=== PATIENT | male | born 1945 | race Caucasian/White ===

== ENCOUNTER 2020-02-26 10:06 | Emergency (ER) | payer BC, MEDICARE ==
[2020-02-26 10:27] VITALS: BP 158/79; PULSE 77
--- NOTE | 2020-02-29 14:32 | EDM.PDOC ---
ED HPI GENERAL MEDICAL PROBLEM - General Chief Complaint: Genitourinary Problem Stated Complaint: KIDNEY STONE Time Seen by Provider: 02/26/20 10:45 Source of Information: Reports: Patient, Family, RN, RN Notes Reviewed History Limitations: Reports: No Limitations - History of Present Illness INITIAL COMMENTS - FREE TEXT/NARRATIVE: Patient presents to ER with complaint of urinary retention. Patient states approximately 10 years ago he had his penis cut off due to blood clots in the penis. 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 A penile pump was implanted, and a penis was reconstructed. Patient states the penile pump has been inflated for many years, and he never deflates it. Patient states he is unsure of how to deflate it. Patient states he has not urinated since last evening. States he urinates normally, does not need to cath himself. Patient complains of severe lower abdominal/pelvic pain from being unable to urinate. Patient denies any further problems at this time. Onset: Today, Gradual Pelvic Pain Score (Numeric/FACES): 8 - Related Data Allergies Allergy/AdvReac Type Severity Reaction Status Date / Time Sulfa (Sulfonamide Allergy Anaphylactic Verified 02/26/20 10:53 Antibiotics) Shock Home Meds: Home Meds Albuterol [Proventil HFA] 1 inh INH Q4H PRN 04/21/16 [History] Calcium Carbonate/Vitamin D3 [Os-Serge 500+D] 1 tab PO DAILY 04/21/16 [History] DULoxetine [Cymbalta] 1 cap PO DAILY 04/21/16 [History] Docusate Sodium [Colace] 1 cap PO DAILY 04/21/16 [History] Fondaparinux [Arixtra] 1 injection SQ DAILY 04/21/16 [History] Furosemide [Lasix] 1 tab PO DAILY 04/21/16 [History] Gabapentin [Neurontin] 1 tab PO BID 04/21/16 [History] Lisinopril 1 tab PO DAILY 04/21/16 [History] Multivitamin [Multi-Vitamin Daily] 1 tab PO DAILY 04/21/16 [History] [place]-3S/DHA/Epa/Fish Oil [Fish Oil [place]-3 Softgel] 1 cap PO DAILY 04/21/16 [History] Polyethylene Glycol 3350 [MiraLAX] 1 dose PO DAILY PRN 04/21/16 [History] carvediloL [Carvedilol] 1 tab PO DAILY 04/21/16 [History] oxyCODONE ER [OxyCONTIN] 40 mg PO Q12HR 04/21/16 [History] oxyCODONE HCl [Roxicodone] 1 tab PO Q4H PRN 04/21/16 [History] Past Medical History HEENT History: Reports: Impaired Vision Other HEENT History: wears glasses Cardiovascular History: Reports: Bypass, CAD, Prior Cardiac Arrest Respiratory History: Reports: PE Other Respiratory History: syas no COPD or asthma, but has an inhaler at home Gastrointestinal History: Reports: Chronic Constipation Genitourinary History: Reports: Other (See Below) Other Genitourinary History: penis cut off in 2009 due to clots Musculoskeletal History: Reports: None Neurological History: Reports: None Psychiatric History: Reports: Anxiety, Depression Endocrine/Metabolic History: Reports: Obesity/BMI 30+ Hematologic History: Reports: None Immunologic History: Reports: None Oncologic (Cancer) History: Reports: Prostate, Other (See Below) Other Oncologic History: prostate removed in 1999 Dermatologic History: Reports: None - Infectious Disease History Infectious Disease History: Reports: Chicken Pox, Measles - Past Surgical History Cardiovascular Surgical History: Reports: Coronary Artery Bypass Male Surgical History: Reports: Other (See Below) Other Male Surgeries/Procedures: penile pump Social & Family History - Tobacco Use Smoking Status *Q: Never Smoker Second Hand Smoke Exposure: No - Caffeine Use Caffeine Use: Reports: Coffee, Soda - Recreational Drug Use Recreational Drug Use: No ED ROS GENERAL - Review of Systems Review Of Systems: Comprehensive ROS is negative, except as noted in HPI. ED EXAM, RENAL/ - Physical Exam Exam: See Below Exam Limited By: No Limitations General Appearance: Alert, WD/WN, Moderate Distress Eye Exam: Bilateral Eye: EOMI, Normal Inspection Ears: Normal External Exam, Hearing Grossly Normal Nose: Normal Inspection Throat/Mouth: Normal Inspection, Normal Voice, No Airway Compromise Head: Atraumatic, Normocephalic Neck: Normal Inspection, Supple, Non-Tender, Full Range of Motion Respiratory/Chest: No Respiratory Distress, No Accessory Muscle Use, Chest Non- Tender, Decreased Breath Sounds Cardiovascular: Normal Peripheral Pulses, Regular Rate, Rhythm, No Edema, No Gallop, No JVD, No Murmur, No Rub GI/Abdominal: Normal Bowel Sounds, Soft, No Organomegaly, Tender (RLQ, LLQ, Pelvic) (Male) Exam: Other ("stub" penis reconstructed, penis removed >10 years ago) Rectal (Males) Exam: Deferred Back Exam: Normal Inspection, Full Range of Motion, NT Extremities: Normal Inspection, Normal Range of Motion, Non-Tender, Normal Capillary Refill, No Pedal Edema Neurological: Alert, Oriented, CN II-XII Intact, Normal Cognition, Normal Gait, Normal Reflexes, No Motor/Sensory Deficits Psychiatric: Normal Affect, Normal Mood Skin Exam: Warm, Dry, Intact, Normal Color, No Rash Lymphatic: No Adenopathy Course - Vital Signs Last Recorded V/S: Last Vital Signs Temp 96.6 F L 02/26/20 10:23 Pulse 77 02/26/20 10:23 Resp 18 02/26/20 10:23 BP 158/79 H 02/26/20 10:23 Pulse Ox 98 02/26/20 10:23 - Re-Assessments/Exams Free Text/Narrative Re-Assessment/Exam: Catheterization attempted several times by nursing staff, myself the provider, as well as Dr. Rodriguez. Different sizes as well as a chordee catheter used. Unable to advance the catheter past the penile implant device. Discussed patient case with Dr. Read, urologist at [facility], who states the patient can be transferred to [facility] per private vehicle to see him in the emergency department. Departure - Departure Time of Disposition: 12:06 Disposition: DC/Tfer to Acute Hospital 02 Condition: Fair Clinical Impression: Retention of urine - Discharge Information *PRESCRIPTION DRUG MONITORING PROGRAM REVIEWED*: No *COPY OF PRESCRIPTION DRUG MONITORING REPORT IN PATIENT BERTO: No Forms: ED Department Discharge, Interfacility Transfer [facility] Sepsis Event Note (ED) - Evaluation Sepsis Screening Result: No Definite Risk
== END 2020-02-26 11:56 ==
LOC: DL.ED 10:06
DX: R33.9 Retention of urine, unspecified (principal); I25.10 Atherosclerotic heart disease of native coronary artery without angina pectoris; E66.9 Obesity, unspecified; F32.9 Major depressive disorder, single episode, unspecified; F41.9 Anxiety disorder, unspecified; Z88.2 Allergy status to sulfonamides; Z79.899 Other long term (current) drug therapy; Z68.32 Body mass index [BMI] 32.0-32.9, adult; Z95.1 Presence of aortocoronary bypass graft
CPT/HCPCS: 51702; 99284; 99284-25

== ENCOUNTER 2022-07-05 15:17 | Inpatient (IN) | payer MEDICARE, BC ==
[2022-07-05] MEDS: Sodium Chloride 0.9% 10 ML Syringe FLUSH PRN (15:37)
[2022-07-05] MEDS ORDERED: Albuterol/Ipratropium 3.0-0.5 MG/3 ML Neb Soln NEB ONE ×2 (15:39→17:06)
[2022-07-05] MEDS ORDERED: methylPREDNISolone Sodium Succinate 125 MG/2 ML SDV IVPUSH ONE (15:58)
[2022-07-05 16:04] LABS: PTT,PARTIAL THROMBOPLSTIN TIME 25.4 SEC (22.0-34.0)
[2022-07-05 16:08] LABS: ANION GAP 8.1 mEq/L (7-13); CHLORIDE,CL 94 mmol/L (98-107); SODIUM,NA 131 mmol/L (136-145)
[2022-07-05 16:14] LABS: ESTIMATED GFR 47 mL/min (>=60)
[2022-07-05] MEDS ORDERED: Sodium Chloride 0.9% 1,000 ML IV ONE (16:18)
[2022-07-05 16:24] LABS: CORONAVIRUS COVID-19 NAA NEGATIVE (NEGATIVE); RESPIRATORY SYNCYTIAL VIR NAA NEGATIVE (NEGATIVE)
[2022-07-05] MEDS ORDERED: Albuterol 6.7 GM Inhaler INH ONE (16:38)
[2022-07-05 17:20] LABS: O2 DELIVERY DEVICE ROOM AIR; PCO2 ARTERIAL 52 mmHg (35-45); PO2 ARTERIAL 61 mmHg (70-100)
[2022-07-05 17:21] LABS: ALLEN TEST PERFORMED; BASE EXCESS ARTERIAL 2 mmol/L ((-2)-(+3)); BICARBONATE,ARTERIAL 27.7 mmol/L (22-26); O2 SATURATION ARTERIAL 88 % (95-100)
[2022-07-05] MEDS ORDERED: Ondansetron 4 MG/2 ML SDV IVPUSH PRN (20:00)
[2022-07-05] MEDS ORDERED: Albuterol/Ipratropium 3.0-0.5 MG/3 ML Neb Soln NEB PRN (20:00)
[2022-07-05] MEDS ORDERED: Acetaminophen 325 MG Tab PO PRN (20:00)
[2022-07-05] MEDS ORDERED: Magnesium Hydroxide 400 MG/5 ML Susp 30 ML Cup PO PRN (20:00)
[2022-07-05] MEDS ORDERED: HYDROmorphone 0.5 MG/0.5 ML Syringe IVPUSH PRN (20:00)
[2022-07-05] MEDS ORDERED: Polyethylene Glycol 3350 Powder 17 GM Packet PO PRN (20:00)
[2022-07-05] MEDS ORDERED: Oseltamivir 75 MG Cap PO ONE (20:10)
[2022-07-05] MEDS ORDERED: Glucagon,Human Recombinant 1 MG Vial IM PRN (20:11)
[2022-07-05] MEDS ORDERED: 50% Dextrose in Water 50 ML Syringe IVPUSH PRN (20:11)
[2022-07-05] MEDS ORDERED: Sodium Chloride 0.9% 250 ML IV SCH (20:15)
[2022-07-05] MEDS ORDERED: Midodrine 2.5 MG Tab PO PRN (20:16)
[2022-07-05] MEDS ORDERED: oxyCODONE ER 20 MG TAB.ER PO ONE (21:34)
[2022-07-05] MEDS ORDERED: Gabapentin 300 MG Cap PO ONE (21:41)
[2022-07-05] MEDS: Apixaban 5 MG Tab PO SCH (22:35)
[2022-07-06] MEDS: Albuterol/Ipratropium 3.0-0.5 MG/3 ML Neb Soln NEB SCH ×2 (08:00→19:15)
[2022-07-06] MEDS: methylPREDNISolone Sodium Succinate 40 MG/1 ML SDV IVPUSH SCH ×2 (08:03→20:26)
[2022-07-06] MEDS: Insulin Lispro 100 Units/ML 3 ML Vial SUBCUT SCH ×3 (08:07→17:24)
[2022-07-06] MEDS: Oseltamivir 30 MG Cap PO SCH ×2 (08:09→20:26)
[2022-07-06] MEDS: Apixaban 5 MG Tab PO SCH ×2 (08:09→20:26)
[2022-07-06] MEDS: Sodium Chloride 0.9% 10 ML Syringe FLUSH PRN ×2 (08:15→20:26)
[2022-07-06] MEDS ORDERED: Albuterol 6.7 GM Inhaler INH PRN (08:34)
[2022-07-06] MEDS ORDERED: [UNRECOGNIZED DRUG - OTHER] PO SCH (09:00)
[2022-07-06] MEDS ORDERED: FISH OIL PO SCH (09:00)
[2022-07-06] MEDS ORDERED: EPA PO SCH (09:00)
[2022-07-06] MEDS ORDERED: Apixaban 5 MG Tab PO SCH (09:00)
[2022-07-06] MEDS ORDERED: DHA PO SCH (09:00)
[2022-07-06] MEDS ORDERED: OMEGA PO SCH (09:00)
[2022-07-06] MEDS ORDERED: valACYclovir 1,000 MG Tab PO SCH (09:00)
[2022-07-06] MEDS ORDERED: oxyCODONE 5 MG Tab PO PRN (10:23)
[2022-07-06] MEDS: DULoxetine 30 MG Cap PO SCH (11:00)
[2022-07-06] MEDS: Docusate Sodium 100 MG Cap PO SCH (11:01)
[2022-07-06] MEDS: Calcium Carbonate/Vitamin D3 1250 MG-5 MCG Tab PO SCH (11:01)
[2022-07-06] MEDS: Lisinopril 10 MG Tab PO SCH (11:01)
[2022-07-06] MEDS: Rosuvastatin 10 MG Tab PO SCH (11:02)
[2022-07-06] MEDS: Gabapentin 300 MG Cap PO SCH ×2 (11:02→20:26)
[2022-07-06] MEDS: Multivitamins with Iron/Calcium/Folic Acid/Minerals Tab PO SCH (11:02)
[2022-07-06] MEDS: Spironolactone 25 MG Tab PO SCH (11:04)
[2022-07-06] MEDS: oxyCODONE ER 20 MG TAB.ER PO SCH ×3 (11:05→20:25)
[2022-07-06] MEDS: Lidocaine 5% 700 MG Patch TOP SCH (11:07)
[2022-07-06] MEDS: Furosemide 20 MG Tab PO SCH (11:15)
[2022-07-06] MEDS: valACYclovir 1,000 MG Tab PO SCH (11:26)
[2022-07-06] MEDS: Carvedilol 6.25 MG Tab PO SCH (13:05)
[2022-07-07] MEDS: Albuterol/Ipratropium 3.0-0.5 MG/3 ML Neb Soln NEB SCH ×2 (06:15→18:19)
[2022-07-07 06:43] LABS: ANION GAP 8.6 mEq/L (7-13)
[2022-07-07] MEDS: Insulin Lispro 100 Units/ML 3 ML Vial SUBCUT SCH ×3 (08:19→17:13)
[2022-07-07] MEDS: Apixaban 5 MG Tab PO SCH ×2 (08:20→21:44)
[2022-07-07] MEDS: Carvedilol 6.25 MG Tab PO SCH (08:20)
[2022-07-07] MEDS: Oseltamivir 30 MG Cap PO SCH ×2 (08:20→21:44)
[2022-07-07] MEDS: Gabapentin 300 MG Cap PO SCH ×2 (08:20→21:44)
[2022-07-07] MEDS: oxyCODONE ER 20 MG TAB.ER PO SCH ×3 (08:20→21:44)
[2022-07-07] MEDS: Multivitamins with Iron/Calcium/Folic Acid/Minerals Tab PO SCH (08:22)
[2022-07-07] MEDS: DULoxetine 30 MG Cap PO SCH (08:22)
[2022-07-07] MEDS: Spironolactone 25 MG Tab PO SCH (08:22)
[2022-07-07] MEDS: Furosemide 20 MG Tab PO SCH (08:23)
[2022-07-07] MEDS: Rosuvastatin 10 MG Tab PO SCH (08:23)
[2022-07-07] MEDS: Calcium Carbonate/Vitamin D3 1250 MG-5 MCG Tab PO SCH (08:23)
[2022-07-07] MEDS: methylPREDNISolone Sodium Succinate 40 MG/1 ML SDV IVPUSH SCH ×2 (08:23→21:44)
[2022-07-07] MEDS: Sodium Chloride 0.9% 10 ML Syringe FLUSH PRN ×2 (08:23→21:45)
[2022-07-07] MEDS: Lidocaine 5% 700 MG Patch TOP SCH (08:24)
[2022-07-07] MEDS: valACYclovir 1,000 MG Tab PO SCH (08:29)
[2022-07-07] MEDS: Lisinopril 10 MG Tab PO SCH (08:31)
[2022-07-07] MEDS: Docusate Sodium 100 MG Cap PO SCH (08:31)
[2022-07-07] MEDS ORDERED: valACYclovir 1,000 MG Tab PO SCH (09:00)
[2022-07-07] MEDS ORDERED: Azithromycin 250 MG Tab PO ONE (09:55)
[2022-07-07] MEDS ORDERED: Saccharomyces Boulardii (Probiotic) 250 MG Cap PO ONE (10:00)
[2022-07-08 06:49] LABS: ANION GAP 10.8 mEq/L (7-13)
[2022-07-08] MEDS ORDERED: Azithromycin 250 MG Tab PO ONE (08:22)
[2022-07-08] MEDS: Albuterol/Ipratropium 3.0-0.5 MG/3 ML Neb Soln NEB SCH (08:42)
[2022-07-08] MEDS ORDERED: Saccharomyces Boulardii (Probiotic) 250 MG Cap PO SCH (09:00)
[2022-07-08] MEDS ORDERED: Azithromycin 250 MG Tab PO SCH (09:00)
[2022-07-08] MEDS: oxyCODONE ER 20 MG TAB.ER PO SCH ×2 (09:16→15:13)
[2022-07-08] MEDS: Oseltamivir 30 MG Cap PO SCH (09:16)
[2022-07-08] MEDS: DULoxetine 30 MG Cap PO SCH (09:17)
[2022-07-08] MEDS: Carvedilol 6.25 MG Tab PO SCH (09:17)
[2022-07-08] MEDS: Gabapentin 300 MG Cap PO SCH (09:18)
[2022-07-08] MEDS: Multivitamins with Iron/Calcium/Folic Acid/Minerals Tab PO SCH (09:18)
[2022-07-08] MEDS: Furosemide 20 MG Tab PO SCH (09:18)
[2022-07-08] MEDS: Spironolactone 25 MG Tab PO SCH (09:18)
[2022-07-08] MEDS: Calcium Carbonate/Vitamin D3 1250 MG-5 MCG Tab PO SCH (09:18)
[2022-07-08] MEDS: Docusate Sodium 100 MG Cap PO SCH (09:19)
[2022-07-08] MEDS: Lisinopril 10 MG Tab PO SCH (09:19)
[2022-07-08] MEDS: Rosuvastatin 10 MG Tab PO SCH (09:19)
[2022-07-08] MEDS: Apixaban 5 MG Tab PO SCH (09:19)
[2022-07-08] MEDS: Insulin Lispro 100 Units/ML 3 ML Vial SUBCUT SCH ×2 (09:24→12:24)
[2022-07-08] MEDS: methylPREDNISolone Sodium Succinate 40 MG/1 ML SDV IVPUSH SCH (09:25)
[2022-07-08] MEDS: Lidocaine 5% 700 MG Patch TOP SCH (09:25)
[2022-07-08] MEDS: valACYclovir 1,000 MG Tab PO SCH (09:53)
[2022-07-08 13:46] VITALS: BP 147/68; PULSE 73
== END 2022-07-08 14:00 | disposition home or self-care (01) | DRG 193 ==
LOC: DL.ED 15:17 → DL.MS 17:47 → DL.ED 17:56
PROVIDERS: ADMIT Internal Medicine; ATTEND Internal Medicine
DX: J10.1 Influenza due to other identified influenza virus with other respiratory manifestations (principal); J96.21 Acute and chronic respiratory failure with hypoxia; B02.29 Other postherpetic nervous system involvement; D68.59 Other primary thrombophilia; R09.02 Hypoxemia; N17.9 Acute kidney failure, unspecified; F11.20 Opioid dependence, uncomplicated; Z20.822 Contact with and (suspected) exposure to COVID-19; E87.1 Hypo-osmolality and hyponatremia; E88.09 Other disorders of plasma-protein metabolism, not elsewhere classified; I95.9 Hypotension, unspecified; E87.8 Other disorders of electrolyte and fluid balance, not elsewhere classified; E78.5 Hyperlipidemia, unspecified; G47.33 Obstructive sleep apnea (adult) (pediatric); G89.4 Chronic pain syndrome; K59.09 Other constipation; F41.9 Anxiety disorder, unspecified; F32.A Depression, unspecified; R73.9 Hyperglycemia, unspecified; T38.0X5A Adverse effect of glucocorticoids and synthetic analogues, initial encounter; Z86.718 Personal history of other venous thrombosis and embolism; Z79.01 Long term (current) use of anticoagulants; Z85.46 Personal history of malignant neoplasm of prostate; I25.10 Atherosclerotic heart disease of native coronary artery without angina pectoris; Z85.79 Personal history of other malignant neoplasms of lymphoid, hematopoietic and related tissues; E66.9 Obesity, unspecified; F17.220 Nicotine dependence, chewing tobacco, uncomplicated; Z88.2 Allergy status to sulfonamides; Z95.1 Presence of aortocoronary bypass graft; Z79.899 Other long term (current) drug therapy; Z86.711 Personal history of pulmonary embolism
CPT/HCPCS: 0241U; 36415; 36600; 71045; 80053; 81003; 82803; 82947; 83605; 83735; 83880; 84145; 84484; 85025; 85610; 85651; 85730; 86140; 87040; 87070; 87205; 93005; 93010; 94640; 96361; 96374; 97161-GP; 97165-GO; 99222; 99232; 99238; 99285; 99285-25; A9270-GY; J1815-GY; J2920; J2930; J3490; J7030; J7050; J7620-GY

== ENCOUNTER 2022-12-02 23:27 | Emergency (ER) | payer MEDICARE, BC ==
[2022-12-02 23:47] VITALS: BP 147/81; PULSE 80
[2022-12-03] MEDS ORDERED: Sodium Chloride 0.9% 10 ML Syringe FLUSH PRN (00:38)
[2022-12-03] MEDS ORDERED: Benzonatate 100 MG Cap PO ONE (00:41)
[2022-12-03] MEDS ORDERED: Dexamethasone 4 MG/ML SDV IVPUSH ONE (00:41)
[2022-12-03] MEDS ORDERED: guaiFENesin/Dextromethorphan 100-10 MG/5 ML Soln 5 ML Cup PO ONE (00:41)
[2022-12-03] MEDS ORDERED: Albuterol/Ipratropium 3.0-0.5 MG/3 ML Neb Soln NEB ONE ×3 (00:41→00:44)
[2022-12-03 00:55] LABS: BASOPHILS PERCENT AUTO 0.3 % (0.0-1.0); EOSINOPHILS PERCENT AUTO 7.5 % (1.0-3.0); HEMOGLOBIN 14.4 g/dL (14.0-18.0); MEAN CORPUSCULAR HEMOGLOBIN 33.2 pg (27.0-34.0); MEAN CORPUSCULAR HGB CONC 34.3 g/dL (33.0-35.0); MEAN CORPUSCULAR VOLUME 96.8 fL (80-100); NEUTROPHILS PERCENT AUTO 68.2 % (42.2-75.2); PLATELET COUNT,PLT 133 10^3/uL (150-450); RED BLOOD CELL COUNT 4.34 10^6/uL (4.6-6.2); WHITE BLOOD CELL COUNT,WBC 7.4 10^3/uL (5.0-10.0)
[2022-12-03 01:21] LABS: A/G RATIO 1.1; ALBUMIN 3.6 g/dL (3.4-5.0); ANION GAP 10.5 mEq/L (7-13); BILIRUBIN TOTAL 0.3 mg/dL (0.2-1.0); BUN/CREATININE RATIO 21.1 (No establ ref range); CREATININE 1.14 mg/dL (0.70-1.30); EST CRCL DRUG DOSING (CG) 48.27 mL/min; POTASSIUM,K 4.5 mmol/L (3.5-5.1); PROTEIN TOTAL,TP 6.8 g/dL (6.4-8.2)
== END 2022-12-03 04:22 | disposition home or self-care (01) ==
LOC: DL.ED 23:27
DX: J20.9 Acute bronchitis, unspecified (principal); I25.10 Atherosclerotic heart disease of native coronary artery without angina pectoris; E66.9 Obesity, unspecified; Z68.30 Body mass index [BMI] 30.0-30.9, adult; Z20.822 Contact with and (suspected) exposure to COVID-19; Z95.1 Presence of aortocoronary bypass graft; Z79.899 Other long term (current) drug therapy; Z88.2 Allergy status to sulfonamides
CPT/HCPCS: 36415; 71045; 80053; 83880; 84484; 85025; 85379; 87804; 93005; 93010; 94640; 96374; 99285; 99291; 99292; A9270; J1100; U0002; J3490; J7620-GY

== ENCOUNTER 2023-04-11 13:44 | Emergency (ER) | payer BC, MEDICARE ==
[2023-04-11] MEDS ORDERED: Sodium Chloride 0.9% 10 ML Syringe FLUSH PRN (13:55)
[2023-04-11] MEDS ORDERED: Sodium Chloride 0.9% 1,000 ML IV ONE (14:02)
[2023-04-11 14:11] VITALS: BP 104/62; PULSE 56
[2023-04-11 14:11] LABS: BASOPHILS PERCENT AUTO 0.1 % (0.0-1.0); HEMATOCRIT 42.8 % (40.0-54.0); HEMOGLOBIN 14.8 g/dL (14.0-18.0); LYMPHOCYTES PERCENT AUTO 5.6 % (20.5-50.1); MEAN CORPUSCULAR HEMOGLOBIN 33.4 pg (27.0-34.0); MEAN CORPUSCULAR HGB CONC 34.6 g/dL (33.0-35.0); MEAN CORPUSCULAR VOLUME 96.6 fL (80-100); MONOCYTES PERCENT AUTO 12.9 % (2-8); NEUTROPHILS PERCENT AUTO 81.4 % (42.2-75.2); PLATELET COUNT,PLT 135 10^3/uL (150-450); RED BLOOD CELL COUNT 4.43 10^6/uL (4.6-6.2); WHITE BLOOD CELL COUNT,WBC 13.5 10^3/uL (5.0-10.0)
[2023-04-11 14:18] LABS: APPEARANCE,URINE CLEAR (CLEAR); BILIRUBIN,URINE NEGATIVE (NEGATIVE); COLOR,URINE DARK YELLOW (YELLOW); GLUCOSE,URINE NEGATIVE (NEGATIVE); KETONES,URINE NEGATIVE (NEGATIVE); LEUKOCYTE ESTERASE,URINE NEGATIVE (NEGATIVE); NITRITE,URINE NEGATIVE (NEGATIVE); OCCULT BLOOD,URINE SMALL (NEGATIVE); PH,URINE 5.5 (5.0-9.0); PROTEIN,URINE NEGATIVE (NEGATIVE); UROBILINOGEN,URINE 0.2 mg/dL (0.2-1.0)
[2023-04-11 14:27] LABS: AMORPHOUS SEDIMENT,URINE FEW /HPF (NOT SEEN); BACTERIA,URINE FEW /HPF (0-FEW/HPF); EPITHELIAL CELLS,URINE FEW /HPF (NOT SEEN); MUCUS,URINE MANY /LPF (NOT SEEN); WBC,URINE 0-5 /HPF (0-5/HPF)
[2023-04-11 14:30] LABS: ALBUMIN 3.1 g/dL (3.4-5.0); ANION GAP 12.2 mEq/L (7-13); BILIRUBIN TOTAL 0.8 mg/dL (0.2-1.0); BUN/CREATININE RATIO 15.1 (No establ ref range); C-REACTIVE PROTEIN 17.42 ng/dL (<=0.30); CALCIUM 9.1 mg/dL (8.5-10.1); CREATININE 1.26 mg/dL (0.70-1.30); EST CRCL DRUG DOSING (CG) 44.45 mL/min; POTASSIUM,K 5.2 mmol/L (3.5-5.1); PROTEIN TOTAL,TP 7.1 g/dL (6.4-8.2)
[2023-04-11 14:31] LABS: A/G RATIO 0.78
[2023-04-11] MEDS ORDERED: Iopamidol 612 MG/ML 100 ML Bottle IVPUSH ONE (14:34)
[2023-04-11] MEDS ORDERED: Piperacillin/Tazobactam 3.375 GM in Sodium Chloride 0.9% 100 ML IV ONE (16:00)
== END 2023-04-11 17:09 | disposition home or self-care (01) ==
LOC: DL.ED 13:44
DX: K80.12 Calculus of gallbladder with acute and chronic cholecystitis without obstruction (principal); I25.10 Atherosclerotic heart disease of native coronary artery without angina pectoris; E66.9 Obesity, unspecified; Z68.30 Body mass index [BMI] 30.0-30.9, adult; Z88.8 Allergy status to other drugs, medicaments and biological substances; Z91.048 Other nonmedicinal substance allergy status; Z88.2 Allergy status to sulfonamides; Z79.01 Long term (current) use of anticoagulants
CPT/HCPCS: 36415; 74177; 76705; 80053; 81001; 83605; 83690; 84145; 85025; 86140; 96361; 96365; 99284; 99284-25; J2543; J3490; J7030; Q9967